=== PATIENT | male | born 1970 | race Native Hawaiian/Other Pacific Islander ===

== ENCOUNTER 2017-07-10 12:30 | Emergency (ER) | payer MEDICAID ==
[~2017-07-10] VITALS: Ht 160 cm; Wt 56.5 kg
[2017-07-10 13:01] VITALS: BP 117/81
--- NOTE | 2017-07-10 15:10 | NUR ---
46M BIB SELF C/O SHARP, LEFT UPPER QUADRANT ABDOMINAL PAIN, NON-RADIATING, 7/10 X 3 DAYS; PT STATES HAD 4 EPISODES OF VOMITING TODAY, WITH 3 EPISODES OF DIARRHEA TODAY; ABDOMEN SOFT, NON-TENDER, ACTIVE BOWEL SOUNDS X 4 QUADRANTS; PT AA&OX4, PERRLA, BL LUNG SOUNDS CLEAR, RR EVEN/UNLABORED, SKIN IS WARM/DRY/INTACT AT THIS TIME; STEADY GAIT; PT RESTING IN BED WITH HOB ELEVATED AND IN LOWEST POSITION; POSITIONED FOR COMFORT; ER MD MADE AWARE OF STATUS. WILL CONTINUE TO MONITOR.
[2017-07-10] MEDS ORDERED: ONDANSETRON 4 MG ODT PO ONE (15:25)
[2017-07-10] MEDS ORDERED: DIPHENOXYLATE /ATROPINE 2.5 MG TAB PO ONE (15:25)
[2017-07-10 16:25] VITALS: BP 124/84
--- NOTE | 2017-07-10 16:25 | NUR ---
Patient discharged with v/s stable. Written and verbal after care instructions given and explained. Patient alert, oriented and verbalized understanding of instructions. Ambulatory with to car. All questions addressed prior to discharge. ID band removed. Patient advised to follow up with PMD. Rx of ZOFRAN, LOMOTIL AND ACETAMINOPHEN given. Patient educated on indication of medication including possible reaction and side effects. Opportunity to ask questions provided and answered.
== END 2017-07-10 16:25 | disposition home or self-care (01) ==
LOC: MED 12:30
DX: A08.4 Viral intestinal infection, unspecified (principal)
CPT/HCPCS: 99283; S0119